=== PATIENT | female | born 1990 | race Hispanic/Latino ===

== ENCOUNTER 2018-08-06 22:29 | Emergency (ER) | payer MEDICAID, OTHER ==
[2018-08-06] MEDS ORDERED: CEFTRIAXONE SODIUM 1 GM ONE (23:02)
[2018-08-06] MEDS ORDERED: IBUPROFEN 200 MG TAB ONE (23:02)
[2018-08-06] MEDS ORDERED: LIDOCAINE HCL-MPF 1% 2ML VIAL ONE (23:02)
[2018-08-06] MEDS ORDERED: IBUPROFEN 400 MG TABLET ONE (23:02)
[2018-08-06] MEDS ORDERED: ACETAMINOPHEN EXTRA STRENGTH 500 MG TABLET ONE (23:16)
== END 2018-08-06 23:53 | disposition home or self-care (01) ==
LOC: EDH 22:29
DX: H66.92 Otitis media, unspecified, left ear (principal); J02.9 Acute pharyngitis, unspecified; Z90.49 Acquired absence of other specified parts of digestive tract
CPT/HCPCS: 96372; 99283; J0696; J3490

== ENCOUNTER 2019-08-02 23:44 | Inpatient (IN) | payer SELFPAY ==
[~2019-08-02] VITALS: Ht 149.9 cm; Wt 79.3 kg
[2019-08-03 00:24] LABS: BASOPHILS % (AUTO) 0.3 % (0.0-5.0); EOSINOPHILS % (AUTO) 0.5 % (0.0-8.0); HEMATOCRIT 37.9 % (36-48); LYMPHOCYTES % (AUTO) 21.2 % (21.0-51.0); MEAN CORPUSCULAR HEMOGLOBIN 27.6 pg (27.0-33.0); MEAN CORPUSCULAR VOLUME 83.7 fL (79-99); MONOCYTES % (AUTO) 10.6 % (3.0-13.0); NEUTROPHILS % (AUTO) 67.1 % (40.0-77.0); PLATELET COUNT (AUTO) 308 K/uL (130-400); RED BLOOD CELL COUNT(AUTO) 4.53 MIL/uL (4.00-5.50); RED CELL DISTRIBUTION WIDTH 12.5 % (11.0-15.5); WHITE BLOOD COUNT (AUTO) 15.1 K/uL (4.8-10.8)
[2019-08-03] MEDS ORDERED: DEXAMETHASONE SOD PHOSPHATE 10MG/ML 1ML VIAL ONE (00:30)
[2019-08-03] MEDS ORDERED: CEFTRIAXONE SODIUM 1 GM ONE (00:31)
[2019-08-03 00:32] LABS: POTASSIUM 3.7 mmol/L (3.5-5.1)
[2019-08-03 00:37] LABS: ALBUMIN 3.7 g/dL (3.5-5.0); BILIRUBIN,TOTAL 0.6 mg/dL (0.2-1.0); TOTAL PROTEIN, SERUM 8.4 g/dL (6.0-8.3)
[2019-08-03] MEDS ORDERED: IOHEXOL-350 50ML VIAL IV ONE (00:47)
[2019-08-03] MEDS ORDERED: ONDANSETRON HCL 4 MG/2 ML VIAL ONE (00:54)
[2019-08-03] MEDS ORDERED: KETOROLAC TROMETHAMINE 30MG/ML ONE (00:54)
[2019-08-03] MEDS ORDERED: ZOSYN 3.375GM+NS 50ML 50 ML IV ONE (02:00)
[2019-08-03] MEDS ORDERED: ONDANSETRON HCL 4 MG/2 ML VIAL IV PRN (02:00)
[2019-08-03] MEDS ORDERED: VANCOMYCIN 1GM+NS 250ML 250 ML IV ONE (02:00)
[2019-08-03] MEDS ORDERED: LACTULOSE 20 GM/30 ML UDCUP PO PRN (02:00)
[2019-08-03] MEDS ORDERED: VANCOMYCIN PROTOCOL PER PHARMACY IV SCH (02:00)
[2019-08-03] MEDS ORDERED: ACETAMINOPHEN 325 MG TAB PO PRN ×2 (02:00)
[2019-08-03 02:50] VITALS: BP 116/67
[2019-08-03] MEDS ORDERED: SODIUM CHLORIDE 0.9% 50 ML IV ONE (02:56)
[2019-08-03] MEDS: SODIUM CHLORIDE 0.9% 1000ML 1,000 ML IV SCH ×3 (03:13→21:17)
[2019-08-03] MEDS ORDERED: COMPOUND IV REFRIGERATED 1 EACH IVSOLN MISC PRN (06:00)
[2019-08-03 07:40] VITALS: BP 114/65
[2019-08-03] MEDS: ENOXAPARIN SODIUM 40 MG/0.4 ML SYRINGE SQ SCH (09:00)
[2019-08-03] MEDS: ZOSYN 3.375GM+NS 50ML 50 ML IV SCH ×2 (10:20→17:50)
[2019-08-03] MEDS: FAMOTIDINE/PF 20 MG/2 ML VIAL IV SCH ×2 (10:20→21:17)
[2019-08-03 10:56] VITALS: BP 116/63
--- NOTE | 2019-08-03 14:34 | NUR ---
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 Pt is on waiting list for PCP at [facility] and on no regular medications, uses [facility] when needed. Pt denies dc needs and plan is home at ri Addendum: 08/03/19 at 1440 by TORI DEVLIN SS Amended: Links added.
[2019-08-03] MEDS: VANCOMYCIN 1.25 GM in SODIUM CHLORIDE 0.9% 250 ML IV SCH (14:44)
[2019-08-03 15:49] VITALS: BP 102/57
[2019-08-03] MEDS: KETOROLAC TROMETHAMINE 15MG/ML IV PRN (16:42)
[2019-08-03 20:05] VITALS: BP 109/54
[2019-08-03 23:40] VITALS: BP 108/42
[2019-08-04] MEDS: VANCOMYCIN 1.25 GM in SODIUM CHLORIDE 0.9% 250 ML IV SCH ×2 (01:21→15:48)
[2019-08-04] MEDS: ZOSYN 3.375GM+NS 50ML 50 ML IV SCH ×3 (01:21→18:35)
[2019-08-04 03:53] VITALS: BP 119/56
[2019-08-04 06:06] LABS: BASOPHILS % (AUTO) 0.2 % (0.0-5.0); EOSINOPHILS % (AUTO) 0.1 % (0.0-8.0); HEMATOCRIT 31.3 % (36-48); LYMPHOCYTES % (AUTO) 19.9 % (21.0-51.0); MEAN CORPUSCULAR HEMOGLOBIN 27.9 pg (27.0-33.0); MEAN CORPUSCULAR HGB CONC 31.9 g/dL (32.0-36.0); MEAN CORPUSCULAR VOLUME 87.4 fL (79-99); MONOCYTES % (AUTO) 7.2 % (3.0-13.0); NEUTROPHILS % (AUTO) 72.2 % (40.0-77.0); PLATELET COUNT (AUTO) 252 K/uL (130-400); RED BLOOD CELL COUNT(AUTO) 3.58 MIL/uL (4.00-5.50); RED CELL DISTRIBUTION WIDTH 12.4 % (11.0-15.5); WHITE BLOOD COUNT (AUTO) 12.4 K/uL (4.8-10.8)
[2019-08-04 06:25] LABS: CREATININE 0.8 mg/dL (0.5-1.5); POTASSIUM 4.2 mmol/L (3.5-5.1)
[2019-08-04 08:22] VITALS: BP 93/60
[2019-08-04] MEDS: SODIUM CHLORIDE 0.9% 1000ML 1,000 ML IV SCH ×3 (09:20→23:17)
[2019-08-04] MEDS: FAMOTIDINE/PF 20 MG/2 ML VIAL IV SCH ×2 (09:20→20:43)
[2019-08-04] MEDS: ENOXAPARIN SODIUM 40 MG/0.4 ML SYRINGE SQ SCH (09:28)
[2019-08-04 11:07] VITALS: BP 117/75
[2019-08-04] MEDS: KETOROLAC TROMETHAMINE 15MG/ML IV PRN (15:48)
[2019-08-04 15:52] VITALS: BP 119/60
[2019-08-04 20:00] VITALS: BP 115/72
--- NOTE | 2019-08-04 20:43 | NUR ---
MEDS SHIFT ASSESSMENT DONE, PLEASE REFER TO CHART. DUE MEDS ADMINISTERED, TOLERATED WELL. KEPT RESTED AND COMFORTABLE. CALL LIGHT WITHIN REACH. WILL MONITOR PT. Addendum: 08/05/19 at 0047 by NIKOLE KILGORE RN RN Amended: Links added.
[2019-08-04 23:28] VITALS: BP 101/49
[2019-08-05] MEDS: ZOSYN 3.375GM+NS 50ML 50 ML IV SCH ×2 (01:05→08:47)
[2019-08-05] MEDS: VANCOMYCIN 1.25 GM in SODIUM CHLORIDE 0.9% 250 ML IV SCH ×2 (01:53→14:20)
--- NOTE | 2019-08-05 01:58 | NUR ---
ROUNDS PT STILL AWAKE, WATCHING TV. NO DISTRESS NOTED. NO COMPLAINTS VERBALIZED. ENCOURAGED TO REST AND SLEEP. WILL MONITOR PT. CALL LIGHT WITHIN REACH.
[2019-08-05] MEDS: SODIUM CHLORIDE 0.9% 1000ML 1,000 ML IV SCH (03:01)
[2019-08-05 03:29] VITALS: BP 115/74
--- NOTE | 2019-08-05 06:00 | NUR ---
ROUNDS PT RESTING IN BED. NO CONCERNS VERBALIZED. KEPT RESTED. FOR MORE CARE AND MANAGEMENT.
[2019-08-05 08:00] VITALS: BP 98/62
[2019-08-05] MEDS: FAMOTIDINE/PF 20 MG/2 ML VIAL IV SCH (08:47)
[2019-08-05] MEDS: ENOXAPARIN SODIUM 40 MG/0.4 ML SYRINGE SQ SCH (08:48)
[2019-08-05 12:00] VITALS: BP 105/68
[2019-08-05 16:02] VITALS: BP 115/58
[2019-08-05] MEDS ORDERED: AMOX-429 PO ×2 (19:54→20:27)
[2019-08-05 20:39] VITALS: BP 118/74
--- NOTE | 2019-08-05 20:43 | NUR ---
PT DISCHARGED PT DISCHARGED TO HOME. PT GIVEN DISCHARGED INSTRUCTIONS, VERBALIZED UNDERSTANDING AND AGREEMENT. PT TO FUP WITH DR. NOLEN IN ONE WEEK. PT STATES SHE DOES NOT HAVE A PCP, BUT WILL START TO LOOK FOR ONE. ANTIBIOTIC ORDER WAS GIVEN TO BE FILLED AT PHARMACY. IV WAS REMOVED BY STUART MORAN. BELONGINGS WERE TAKEN BY PT. PT WHEELED DOWN TO ED VIA WC BY KIMBERLEY NOEL. PT HAD NO FURTHER QUESTIONS.
== END 2019-08-05 20:45 | disposition home or self-care (01) | DRG 153 ==
LOC: EDH 23:44 → EDHIP 23:45 → 3BH 08-03 02:38
PROVIDERS: ADMIT Internal Medicine; ATTEND Internal Medicine
DX: J36 Peritonsillar abscess (principal); R59.0 Localized enlarged lymph nodes; R59.9 Enlarged lymph nodes, unspecified; B95.0 Streptococcus, group A, as the cause of diseases classified elsewhere; E66.9 Obesity, unspecified; Z68.35 Body mass index [BMI] 35.0-35.9, adult; Z90.49 Acquired absence of other specified parts of digestive tract
CPT/HCPCS: 36415; 70491; 80048; 80053; 80202; 81025; 85025; 87040; 87070; 87076; 87880; G0378; J0696; J1100; J1650; J1885; J2405; J2543; J3370; J3490; J7030; J7050; Q9967

== ENCOUNTER 2021-01-21 17:31 | Emergency (ER) | payer SELFPAY ==
[~2021-01-21 17:31] MED LIST: AMOX-429 PO
[2021-01-21] MEDS ORDERED: LIDOCAINE HCL-MPF 1% 2ML VIAL ONE (17:49)
[2021-01-21] MEDS ORDERED: ACETAMINOPHEN 500 MG TABLET ONE (17:49)
[2021-01-21] MEDS ORDERED: DEXAMETHASONE 4 MG TAB ONE (17:49)
[2021-01-21] MEDS ORDERED: CEFTRIAXONE 1G VIAL ONE (17:49)
[2021-01-21] MEDS ORDERED: METH4TAB3 PO (17:56)
[2021-01-21] MEDS ORDERED: IBUP-2070 PO (17:56)
[2021-01-21] MEDS ORDERED: AMOX-429 PO (17:56)
[2021-01-21] MEDS ORDERED: DEXAMETHASONE 4 MG TAB PO SCH (18:00)
[2021-01-21] MEDS ORDERED: CEFTRIAXONE 1G VIAL IM ONE (18:00)
[2021-01-21] MEDS ORDERED: ACETAMINOPHEN 500 MG TABLET PO ONE (18:00)
[2021-01-21 18:34] VITALS: BP 109/63
== END 2021-01-21 18:52 | disposition home or self-care (01) ==
LOC: EDH 17:31
DX: J03.90 Acute tonsillitis, unspecified (principal); Z79.52 Long term (current) use of systemic steroids
CPT/HCPCS: 96372; 99283; J0696; J3490; J8540

== ENCOUNTER 2022-07-22 02:28 | Emergency (ER) | payer OTHER ==
[~2022-07-22] VITALS: Ht 149.9 cm; Wt 81.6 kg
[~2022-07-22 02:28] MED LIST changes: +IBUP-2070 PO; +METH4TAB3 PO
[2022-07-22 02:37] VITALS: BP 116/60
[2022-07-22] MEDS ORDERED: AMOX1TAB16 PO (03:03)
[2022-07-22] MEDS ORDERED: IBUP-1493 PO (03:03)
[2022-07-22] MEDS ORDERED: KETOROLAC 60 MG VIAL (30MG/ML) IM ONE (03:30)
[2022-07-22] MEDS ORDERED: CEFTRIAXONE 1G VIAL IM ONE (03:30)
== END 2022-07-22 03:36 | disposition home or self-care (01) ==
LOC: EDH 02:28
DX: H66.90 Otitis media, unspecified, unspecified ear (principal); J03.90 Acute tonsillitis, unspecified; R59.0 Localized enlarged lymph nodes; Z20.822 Contact with and (suspected) exposure to COVID-19; Z90.49 Acquired absence of other specified parts of digestive tract; Z79.899 Other long term (current) drug therapy; Z98.890 Other specified postprocedural states
CPT/HCPCS: 99284; 87635; 87880; 87804 ×2; 96372 ×2; C9803; J0696; J1885

== ENCOUNTER 2022-08-30 12:59 | Emergency (ER) | payer OTHER ==
[~2022-08-30] VITALS: Ht 149.9 cm; Wt 81.6 kg
[~2022-08-30 12:59] MED LIST changes: +AMOX1TAB16 PO; +IBUP-1493 PO
[2022-08-30 13:04] VITALS: BP 138/82
[2022-08-30 13:35] LABS: APPEARANCE,URINE CLEAR (CLEAR); BILIRUBIN,URINE NEGATIVE (NEGATIVE); COLOR,URINE YELLOW (YELLOW); GLUCOSE, URINE (UA) NEGATIVE (NEGATIVE); KETONES,URINE NEGATIVE (NEGATIVE); LEUKOCYTE ESTERASE ,URINE 250 Leu/uL (NEGATIVE); NITRATE,URINE NEGATIVE (NEGATIVE); OCCULT BLOOD,URINE NEGATIVE (NEGATIVE); PH,URINE 6.5 (5.0-8.0); PROTEIN,URINE 20 mg/dL (NEGATIVE); UROBILINOGEN,URINE 0.2 mg/dL (0.2-1.0)
[2022-08-30 13:45] LABS: BACTERIA,URINE RARE /HPF (None Seen); MUCUS,URINE MOD LPF (None Seen); SQUAMOUS EPITHELIAL CELL,UR FEW /HPF (0-2)
[2022-08-30 13:56] LABS: BASOPHILS % (AUTO) 0.3 % (0.0-5.0); HEMATOCRIT 40.6 % (36-48); LYMPHOCYTES % (AUTO) 10.7 % (21.0-51.0); MEAN CORPUSCULAR HEMOGLOBIN 26.1 pg (27.0-33.0); MEAN CORPUSCULAR HGB CONC 32.8 g/dL (32.0-36.0); MEAN CORPUSCULAR VOLUME 79.8 fL (79-99); MONOCYTES % (AUTO) 4.3 % (3.0-13.0); NEUTROPHILS % (AUTO) 84.3 % (40.0-77.0); PLATELET COUNT (AUTO) 336 K/uL (130-400); RED BLOOD CELL COUNT(AUTO) 5.09 MIL/uL (4.00-5.50); RED CELL DISTRIBUTION WIDTH 13.6 % (11.0-15.5); WHITE BLOOD COUNT (AUTO) 12.6 K/uL (4.8-10.8)
[2022-08-30 14:08] LABS: CREATININE 0.7 mg/dL (0.5-1.5); POTASSIUM 3.7 mmol/L (3.5-5.1)
[2022-08-30 14:13] LABS: TOTAL PROTEIN, SERUM 8.8 g/dL (6.0-8.3)
[2022-08-30] MEDS ORDERED: ONDANSETRON 4MG INJ IVP ONE (14:30)
[2022-08-30] MEDS ORDERED: 0.9%NACL 1000ML 1,000 ML IV ONE (14:30)
[2022-08-30] MEDS ORDERED: ONDA4TAB10 PO (15:35)
== END 2022-08-30 16:24 | disposition home or self-care (01) ==
LOC: EDH 12:59
DX: T50.905A Adverse effect of unspecified drugs, medicaments and biological substances, initial encounter (principal); R11.2 Nausea with vomiting, unspecified; R06.02 Shortness of breath; R42 Dizziness and giddiness; Z79.899 Other long term (current) drug therapy; Z98.890 Other specified postprocedural states; Z90.49 Acquired absence of other specified parts of digestive tract; Y92.89 Other specified places as the place of occurrence of the external cause
CPT/HCPCS: 99283; 96374; 96361; 80053; 83690; 85025; 87088; 81001; 81025; 36415; J7030; J2405

== ENCOUNTER 2024-08-16 22:00 | Emergency (ER) | payer OTHER, SELFPAY ==
[~2024-08-16] VITALS: Ht 149.9 cm; Wt 79.4 kg
[~2024-08-16 22:00] MED LIST changes: +ONDA-243 PO
--- NOTE | 2024-08-16 22:02 | NUR ---
COVID, FLU AND STREP COLLECTED FOR ANY FUTURE ORDERS UA CUP PROVIDED
--- NOTE | 2024-08-16 22:08 | NUR ---
UA COLLECTED AND SENT FOR ANY FUTURE ORDERS
--- NOTE | 2024-08-16 22:32 | NUR ---
CALLED LAB AND SPOKE TO ABBEY, NOTIFIED HER THAT [facility] WERE SENT AT [address]202 STATES THEY WILL START RUNNING
[2024-08-16 22:43] LABS: RAPID GROUP A STREP negative (NEGATIVE)
--- NOTE | 2024-08-16 22:48 | ERN ---
ED Note History of Present Illness Stated Complaint: FEVER, COUGH Chief Complaint: Fever Time Seen by MD: 22:09 Time Seen by Midlevel: 22:09 Dictation: The patient is a 34-year-old female with a history of tubal ligation, cholecystectomy who presents to the emergency department with complaints of a clear productive cough, sore throat, fevers onset two days ago. Patient reports chest discomfort with the coughing. Denies any nausea or vomiting. Denies any ear pain.Patient reports her son tested positive for flu on Saturday. Allergies: Coded Allergies: No Known Allergies (Unverified Allergy, Unknown, 08/06/18) Home Meds Active Scripts Ondansetron (Ondansetron Odt) 4 Mg Tab.rapdis, 4 MG PO TID for NAUSEA, #15 TAB Prov:ASAEL FRIEDMAN MD 08/30/22 Ibuprofen (Motrin/Advil) 800 Mg Tab, 800 MG PO TID, #30 TAB Prov:ÁNGEL SOLER MD 07/22/22 Amoxicillin/Potassium Clav (Amox Tr-K Clv 875-125 mg Tab) 1 Each Tablet, 1 EACH PO BID, #20 TAB Prov:ÁNGEL SOLER MD 07/22/22 Amoxicillin/Potassium Clav (Augmentin 875-125 Tablet) 1 Each Tablet, 1 TAB PO BID for 7 Days, #14 TAB 0 Refills Prov:ASAEL FRIEDMAN MD 01/21/21 Methylprednisolone (Medrol) 4 Mg Tab.ds.pk, 4 MG PO AD, #1 KIT Prov:ASAEL FRIEDMAN MD 01/21/21 Ibuprofen (Ibuprofen) 600 Mg Tablet, 600 MG PO Q6H PRN for PAIN, #30 TAB 0 Refills Prov:ASAEL FRIEDMAN MD 01/21/21 Amoxicillin/Potassium Clav (Augmentin 875-125 Tablet) 1 Each Tablet, 1 EACH PO BID for 3 Days, #6 TAB 0 Refills Prov:ROSA M CARSON 08/05/19 Past Medical History Past Medical History: No Pertinent History Surgical History: Cholecystectomy Surgical History Other: BBL , BREAST AUGMENTATION Family History: Negative Social History: Negative, Lives with family History: Not Applicable LMP: August 05, 2024 RN Note Reviewed/Agreed w/PFSH: Yes Review of System Dictation Constitutional: Negative for chills, and weight loss positive for fever Eyes: Negative for injury, pain,redness, and discharge ENT: Negative for injury,pain or swelling positive for sore throat Cardiovascular: Negative for palpitations, and edema positive for chest pain Respiratory: Negative for , and wheezing, positive for cough Abdomen/GI: Negative for abdominal pain, nausea, vomiting, diarrhea, and constipation Back: Negative for injury and pain : Negative for injury, bleeding and discharge MS/Extremity: Negative for injury and deformity Skin: Negative for rash, and discoloration Neuro: Negative for headache, weakness, numbness, tingling, and seizure Psych: Negative for suicide ideation, homicidal ideation, and hallucinations Initial Vital Sign VS Vital Signs Date Time Temp Pulse Resp B/P (MAP) Pulse Ox O2 Delivery O2 Flow Rate FiO2 08/16/24 22:02 100.6 113 18 108/57 99 Room Air Physical Exam Dictation Vital Signs reviewed General Appearance: Alert, oriented x 3, no acute distress, well developed, nourished. Head and Face: non-traumatic. Eyes: PERRL, pink conjunctivas, eyelid no trauma, anterior chamber with arcus senilis. Ears: Pinnas intact and no signs of trauma or erythema ear canals clear and no discharge TM no erythema Nose: No discharge, no bleeding. Oropharynx: Mouth normal, tongue pink. pharynx clear,no erythema, tonsils no exudates, no abscesses noted, mucous membrane moist Neck: Supple, non-tender, no thyromegaly, no masses, no JVD, no bruits Breast:Deferred Chest: tenderness to palpation, no crepitus, no paradoxical movement, no retractions Lungs:Clear, well-ventilated, symmetric, no rales, no wheezing, no rhonchi, no stridor, good breath sounds bilaterally Heart: Regular rate, regular rhythm, no murmur, no gallops Vascular: no peripheral edema, Abdomen: Soft, positive bowel sounds, nondistended, no guarding, nontender, no rebound, no masses no hepatomegaly, no splenomegaly, no Hennessy's sign, no hernias. Rectal: Deferred Genital: Deferred Neurological: Normal speech, motor function intact, sensory function intact Musculoskeletal: Neck nontender, full range of motion, back nontender, full ran ge of motion, Extremities: nontender, full range of motion Skin: Color pink, dry, no turgor, no rash, no lacerations, no abrasions, no contusions. Lymphatic: Deferred Results (Laboratory/Radiology) Laboratory/Radiology Laboratory Tests Test 08/16/24 22:00 Influenza Type A Antigen Negative For Type A Influenza Type B Antigen Positive For Type B SARS-CoV-2 Antigen (Rapid) PRESUMPTIVE NEGATIVE Group A Streptococcus Rapid negative (NEGATIVE) ED Course ED Course Orders Procedure Category Date Status Time Covid19 (Sars Antigen LAB 08/16/24 Complete Rapid) 22:25 Influenza Type A & B, LAB 08/16/24 Complete Rapid 22:25 Rapid (Group A Strep) LAB 08/16/24 Complete 22:25 Chest 1vw RAD 08/16/24 Taken 22:25 Acetaminophen 500mg PHA 08/16/24 Complete Tab (Tylenol 500mg T 22:30 Guaifenesin-Codeine PHA 08/16/24 Complete Syrup 5ml (Robitussi 22:30 Dexamethasone 4mg/Ml PHA 08/17/24 Logged 1ml Vial (Dexametha 00:00 Current Medications Medications (Trade) Dose Ordered Sig/Sherrell Route PRN Reason Start Time Stop Time Status Last Admin Dose Admin Acetaminophen (TYLenol 500MG TAB) 1,000 mg ONCE ONCE PO 08/16/24 22:30 08/16/24 22:32 DC 08/16/24 22:54 Dexamethasone Sodium Phosphate (dexaMETHasone 4MG/ML 1ML VIAL) 6 mg ONCE ONCE IM 08/17/24 00:00 08/17/24 00:01 UNV Guaifenesin/ Codeine Phosphate (RobiTUSSin AC 5 ML SYRUP) 10 ml ONCE ONCE PO 08/16/24 22:30 08/16/24 22:32 DC 08/16/24 22:53 Vital Signs Date Time Temp Pulse Resp B/P (MAP) Pulse Ox O2 Delivery O2 Flow Rate FiO2 08/16/24 22:54 100.6 08/16/24 22:02 100.6 113 18 108/57 99 Room Air Medical Decision Making MDM The patient is a 34-year-old female with a history of tubal ligation, cholecystectomy who presents to the emergency department with complaints of a clear productive cough, sore throat, fevers onset two days ago. Patient reports chest discomfort with the coughing. Denies any nausea or vomiting. Denies any ear pain. Patient reports her son tested positive for flu on Saturday. Showed no acute consolidation. Serology positive for influenza B. patient's symptoms for about 48 hours. No benefit from Tamiflu. Patient instructed to follow up with PCP. On physical exam Patient in no acute distress, clear lung sounds., stable vital signs. Differential diagnosis: COVID 19 infection, flu, pneumonia Need for hospitalization: Patient does not meet criteria for hospitalization. There are no social concerns with this patient. DX & DISP Disposition: Discharge Departure Impression: Primary Impression: Influenza B Condition: Stable Additional Instructions: Please follow up with your primary doctor in 1-2 days. If symptoms worsen please return to ER. FOLLOW-UP WITH PRIMARY CARE PROVIDER IN 1 TO 2 DAYS. TAKE MEDICATIONS DIRECTED HERE IN THE EMERGENCY ROOM. OKAY TO CONTINUE HOME MEDICATIONS UNLESS OTHERWISE DISCUSSED DURING YOUR VISIT IN THE EMERGENCY ROOM TODAY. RETURN TO YOUR NEAREST EMERGENCY ROOM IF SYMPTOMS WORSEN OR IF THERE IS NO IMPROVEMENT. CALL 911 IF YOU NEED IMMEDIATE ASSISTANCE. TAKE TYLENOL OR MOTRIN [id number] NEEDED AND IF NO CONTRAINDICATIONS ARE PRESENT. INCREASE ORAL HYDRATION. A WOUND CULTURE OR URINE CULTURE WAS ORDERED HERE IN THE EMERGENCY ROOM DEPARTMENT PLEASE FOLLOW-UP WITH PRIMARY CARE PROVIDER AND ADVISE THEM TO GET REPEAT PORTS FROM OUR FACILITY. IF YOU HAD ANY EVON WRAP/SPLINTS THAT WERE APPLIED HERE, PLEASE DO NOT REMOVE THEM UNTIL YOU SEE YOUR PRIMARY CARE OR SPECIALTY. Referrals: NADEGE OLEA MD (PCP) Time of Disposition: 23:39 I have reviewed the case, and I agree with, Diagnosis and Plan CLINTON ASTORGAP August 16, 2024 22:48
[2024-08-16 22:52] LABS: COVID19 (SARS ANTIGEN RAPID) PRESUMPTIVE NEGATIVE (NEGATIVE); INFLUENZA TYPE A Negative For Type A (NEGATIVE)
[2024-08-16] MEDS: guaiFENesin-coDEINE 5 ML SYRUP PO ONE (22:53)
[2024-08-16] MEDS: acetaMINOPHEN 500 MG TABLET PO ONE (22:54)
[2024-08-16 23:10] LABS: INFLUENZA TYPE B Positive For Type B (NEGATIVE)
[2024-08-16 23:27] VITALS: TEMP 99.5
[2024-08-16 23:40] VITALS: BP 124/74; PULSE 98; RESP 18; TEMP 99.5; O2SAT 97
[2024-08-17] MEDS ORDERED: dexaMETHasone SOD PHOSPHATE 4 MG/ML 1ML VIAL IM ONE
--- NOTE | 2024-08-17 09:38 | HMCIMG ---
Exam Type: CHEST 1VW Clinical Information: sob Comparison: None Findings: The lungs are clear of infiltrates. The heart is normal in size. The bony and soft tissue structures of the chest are unremarkable. Impression: Clear lungs.
== END 2024-08-16 23:45 | disposition home or self-care (01) ==
LOC: EDH 22:00
DX: J10.1 Influenza due to other identified influenza virus with other respiratory manifestations (principal); Z20.822 Contact with and (suspected) exposure to COVID-19; Z90.49 Acquired absence of other specified parts of digestive tract; Z79.1 Long term (current) use of non-steroidal anti-inflammatories (NSAID); Z98.51 Tubal ligation status
CPT/HCPCS: 71045; 87426; 87804; 87880; 99284